=== PATIENT | female | born 1940 | race Caucasian/White ===

== ENCOUNTER 2019-01-05 11:33 | Emergency (ER) | payer MEDICARE ==
[~2019-01-05] VITALS: Ht 167.6 cm; Wt 72.6 kg
[~2019-01-05 11:33] MED LIST: Acetaminophen PO; BUSPAR PO; DEXL60CA3 PO; ERGO500040 PO; LOSA50TA39 PO; NEBI10TA2 PO; XANAX PO
[2019-01-05] MEDS ORDERED: LET TOPICAL SOLUTION 8 ML UDC ONE (11:49)
[2019-01-05] MEDS ORDERED: CEphaleXIN 500 MG CAPSULE ONE (11:56)
[2019-01-05] MEDS ORDERED: SULFAMETH/TRIMETH 800/160 MG TABLET ONE (11:57)
[2019-01-05] MEDS ORDERED: LET TOPICAL SOLUTION 8 ML UDC TP ONE (12:00)
[2019-01-05] MEDS ORDERED: SULFAMETH/TRIMETH 800/160 MG TABLET PO ONE (12:00)
[2019-01-05] MEDS ORDERED: CEphaleXIN 500 MG CAPSULE PO ONE (12:00)
[2019-01-05] MEDS ORDERED: MUPIROCIN 2% OINT 22 GM TUBE TP ONE (12:15)
[2019-01-05] MEDS ORDERED: NEOMY/BACITRA/POLYMYXIN B OINT UD PACKET TP ONE (12:19)
--- NOTE | 2019-01-05 12:25 | NUR ---
Patient discharged to home in stable conditon. Written and verbal after care instructions given. Patient verbalizes understanding of instructions. ALL BELONGINGS W/ PT. PT SELF-AMBULATED W/O DIFFICULTY.
[2019-01-05 12:29] VITALS: BP 156/89
== END 2019-01-05 12:31 | disposition home or self-care (01) ==
LOC: ER 11:36
DX: L03.011 Cellulitis of right finger (principal); I10 Essential (primary) hypertension; Z79.899 Other long term (current) drug therapy
CPT/HCPCS: A4663

== ENCOUNTER 2023-05-03 00:10 | Emergency (ER) | payer MEDICARE, OTHER ==
[~2023-05-03] VITALS: Ht 165.1 cm; Wt 74.4 kg
[2023-05-03] MEDS ORDERED: AMLO-212 PO (00:32)
[2023-05-03] MEDS ORDERED: CLONIDINE HCL 0.1 MG TABLET ONE (01:28)
[2023-05-03] MEDS ORDERED: CLONIDINE HCL 0.1 MG TABLET PO ONE (01:30)
[2023-05-03] MEDS ORDERED: CLON0.1T PO (02:48)
[2023-05-03] MEDS ORDERED: LORA0.5T48 PO (02:48)
[2023-05-03 03:05] VITALS: BP 129/63; O2SAT 93
== END 2023-05-03 03:05 | disposition home or self-care (01) ==
LOC: ER 00:17
DX: I10 Essential (primary) hypertension (principal); Z79.899 Other long term (current) drug therapy
CPT/HCPCS: A4663

== ENCOUNTER 2024-07-11 10:03 | Emergency (ER) | payer MEDICARE, OTHER ==
[~2024-07-11] VITALS: Ht 167.6 cm; Wt 70.3 kg
[~2024-07-11 10:03] MED LIST changes: +AMLO-212 PO; -Acetaminophen PO; -BUSPAR PO; +CLON0.1T PO; -DEXL60CA3 PO; +LORA0.5T48 PO; -LOSA50TA39 PO; -NEBI10TA2 PO; -XANAX PO
[2024-07-11] MEDS ORDERED: CLONIDINE HCL 0.1 MG TABLET ONE (12:02)
[2024-07-11] MEDS: CLONIDINE HCL 0.1 MG TABLET PO ONE (12:03)
[2024-07-11] MEDS ORDERED: LORA0.5T48 PO (13:36)
[2024-07-11] MEDS ORDERED: CLON0.1T PO (13:36)
[2024-07-11 13:51] VITALS: BP 165/75; TEMP 98.8; O2SAT 97
== END 2024-07-11 13:52 | disposition home or self-care (01) ==
LOC: ER 10:03
DX: I11.9 Hypertensive heart disease without heart failure (principal); F41.9 Anxiety disorder, unspecified; Z90.721 Acquired absence of ovaries, unilateral; Z79.899 Other long term (current) drug therapy
CPT/HCPCS: A4606; A4663